=== PATIENT | male | born 1955 | race Caucasian/White ===

== ENCOUNTER → 2020-07-07 | Outpatient (CLI) | payer MEDICARE, OTHER ==
--- NOTE | 2020-07-07 14:11 | CT ---
EXAM DESCRIPTION: CTA Abdomen CLINICAL HISTORY: 64 years Male, ABDOMINAL AORTIC ANEURISM WITHOUT RUPTURE COMPARISON: None. FINDINGS: CTA abdomen Images through the lower chest show clear lungs. Heart is prominent. No pericardial effusion. Images through the upper abdomen show small cyst in the posterior medial right lobe of the liver 8 mm. Another small cyst in the more inferior right lobe measures 7 mm. No calcified stones in the gallbladder. Lobulated appearance of the spleen could be congenital or related to old infarcts or old trauma. Normal adrenal glands. Normal enhancement of the pancreas. Mild bilateral renal scarring with positive cortical enhancement and symmetrical nephrogram. CT angiographic findings show normal caliber of the lower thoracic aorta with mild arteriosclerotic plaque. Widely patent celiac and superior mesenteric artery origins. Calcification at the origins of the bilateral renal arteries left more than right. Endoluminal stent graft is in place with positive enhancement of the lumen. Just below the renal arteries, aortic aneurysm measures 4.2 cm in diameter. More distally at the level of the bifurcation of the graft into 2 iliac limbs, the surrounding chronically thrombosed aneurysm measures 4.5 cm in diameter. Positive enhancement of the right and left common iliac limbs of the stent graft. Positive enhancement of common iliac, proximal external iliac and proximal internal iliac arteries. There is positive enhancement of the inferior mesenteric artery. No evidence of endoleak. Three-D shaded surface display images are evaluated with mediolateral spin display. Coronal and sagittal reformatted images show widely patent celiac axis with positive enhancement of hepatic and splenic arteries. SMA origin is 30% narrowed by plaque (NASCET criteria). Coronal reformatted images show normal enhancement of peripheral branches of the superior mesenteric artery. High-grade narrowing of the origin of the left renal artery approximately 70-80%. Right renal artery origin is narrowed approximately 60% by calcified plaque (NASCET criteria). The lower pelvis is not included on the exam. Extensive arches carotid plaque causes multifocal narrowing of the bilateral internal iliac arteries. External iliac arteries appear widely patent. IMPRESSION: Endoluminal stent graft within infrarenal abdominal aortic aneurysm 4.5 cm in diameter with no evidence of endoleak. This exam was performed according to our departmental dose-optimization program, which includes automated exposure control, adjustment of the mA and/or kV according to patient size and/or use of iterative reconstruction technique. Electronically signed by: Clay Vargas MD 07/07/2020 2:09 PM CDT
== END ==
LOC: CT 10:33
PROVIDERS: ATTEND Family Medicine
DX: I71.4 Abdominal aortic aneurysm, without rupture (principal); Z95.828 Presence of other vascular implants and grafts

== ENCOUNTER → 2020-07-23 | Outpatient (CLI) | payer MEDICARE, OTHER ==
--- NOTE | 2020-07-23 17:16 | RAD ---
EXAM DESCRIPTION: Hand,Left 3 Views (accession [id number]), Hand,Right 3 Views (accession [id number]) CLINICAL HISTORY: PAIN IN LEFT HAND COMPARISON: None Available. TECHNIQUE: AP, LATERAL, AND OBLIQUE FINDINGS: Left hand 3 x-ray views. No fracture. No dislocation. Normal bony mineralization. Cystic changes are seen in the scaphoid. Severe degenerative narrowing of the scapholunate trapezial and scaphoid flow trapezoid joints with narrowing and marginal sclerosis. Cystic change may be intraosseous ganglion within the scaphoid. Lateral view shows mild dorsal tilt of the lunate with mild anterior and posterior spurring. Right hand 3 x-ray views No fracture. No dislocation. Severe degenerative arthrosis of the scaphoid flow trapezial and scaphoid trapezoid joints with narrowing and sclerosis. Mild degenerative spurring at the interphalangeal joint of the thumb. Normal overall bony mineralization and trabecular pattern. 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 Electronically signed by: Clay Vargas MD 07/23/2020 5:15 PM CDT
--- NOTE | 2020-07-23 17:17 | RAD ---
EXAM DESCRIPTION: Hand,Left 3 Views (accession [id number]), Hand,Right 3 Views (accession [id number]) CLINICAL HISTORY: PAIN IN LEFT HAND COMPARISON: None Available. TECHNIQUE: AP, LATERAL, AND OBLIQUE FINDINGS: Left hand 3 x-ray views. No fracture. No dislocation. Normal bony mineralization. Cystic changes are seen in the scaphoid. Severe degenerative narrowing of the scapholunate trapezial and scaphoid flow trapezoid joints with narrowing and marginal sclerosis. Cystic change may be intraosseous ganglion within the scaphoid. Lateral view shows mild dorsal tilt of the lunate with mild anterior and posterior spurring. Right hand 3 x-ray views No fracture. No dislocation. Severe degenerative arthrosis of the scaphoid flow trapezial and scaphoid trapezoid joints with narrowing and sclerosis. Mild degenerative spurring at the interphalangeal joint of the thumb. Normal overall bony mineralization and trabecular pattern. 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 Electronically signed by: Clay Vargas MD 07/23/2020 5:15 PM CDT
== END ==
LOC: RAD 09:01
PROVIDERS: ATTEND Orthopaedic Surgery
DX: M19.041 Primary osteoarthritis, right hand (principal); M19.042 Primary osteoarthritis, left hand

== ENCOUNTER → 2020-08-13 | Outpatient (CLI) | payer MEDICARE, OTHER | LOC: RESP 10:03 | PROVIDERS: ATTEND Internal Medicine Cardiovascular Disease | DX: D73.5 Infarction of spleen (principal) ==

== ENCOUNTER → 2020-10-11 | Outpatient (CLI) | payer MEDICARE, OTHER | LOC: LAB.O 08:45 | PROVIDERS: ATTEND Orthopaedic Surgery | DX: Z01.818 Encounter for other preprocedural examination (principal) ==

== ENCOUNTER 2020-10-26 05:38 | Day surgery (SDC) | payer MEDICARE, OTHER ==
[2020-10-26] MEDS ORDERED: LIDOCAINE 1% 10 ML VIAL INJ ONE ×2 (05:39→07:36)
[2020-10-26] MEDS ORDERED: PROPOFOL 200 MG/20 ML VIAL IV ONE (05:39)
[2020-10-26] MEDS ORDERED: SODIUM CHL 0.9% 100ML MINI-BAG 100 ML IVPB ONE (06:26)
[2020-10-26] MEDS ORDERED: ceFAZolin SODIUM 1 GM VIAL ONE ×2 (06:27→07:36)
[2020-10-26] MEDS ORDERED: LACTATED RINGERS 1,000 ML ONE (06:27)
[2020-10-26] MEDS ORDERED: BUPIVACAINE 0.25% INJ 30 ML VIAL INJ ONE (07:36)
[2020-10-26] MEDS ORDERED: LACTATED RINGERS 1,000 ML IVS ONE (09:25)
[2020-10-26] MEDS ORDERED: CLINDAMYCIN IV 900MG 50 ML IVPB ONE (09:50)
[2020-10-26] MEDS: VANCOMYCIN HCL INJ 1,000 MG VIAL IVPB ONE ×2 (10:21→10:35)
[2020-10-26 11:16] VITALS: BP 136/86; TEMP 97.6; O2SAT 96
--- NOTE | 2020-10-27 09:10 | OP ---
DATE OF PROCEDURE: 10/26/20 PREOPERATIVE DIAGNOSIS: 1. Right carpal tunnel syndrome. POSTOPERATIVE DIAGNOSIS: 1. Right carpal tunnel syndrome. PROCEDURE: 1. Right carpal tunnel release. SURGEON: Zeus Granados MD. FISH PROTECTOR: Sherman Reeves CST, SA-C. ANESTHESIA: Local with sedation. COMPLICATIONS: None. FINDINGS: 1. Thickening of the transverse carpal ligament. 2. Narrowing of the median nerve across the carpal tunnel. INDICATION: Mr. Read has a history of bilateral carpal tunnel syndrome. Unfortunately, he has been unable to get relief with any conservative measures. Because of that, he has requested operative intervention. After discussing the risks, benefits and alternatives to that, the patient has given informed consent for carpal tunnel release. PROCEDURE: The patient was brought to the Operating Room and placed in the supine position. Sedation was administered and local anesthetic was injected into the operative area under sterile conditions. After the injection of anesthetic, the arm was sterilely prepped and draped. A longitudinal incision was made directly overlying the transverse carpal ligament and blunt dissection was carried down to the ligament. The transverse carpal ligament was sharply transected along its length and a [place] elevator was used to ensure complete release of the ligament. Once release had been confirmed, the wound was thoroughly irrigated and the wound was closed with Nylon suture. A sterile dressing was placed and the patient was taken to the Day Surgery Unit. POSTOPERATIVE PLAN: The patient will be doing range of motion of the digits and will followup with us in about two days. #[id number] [facility]TDD
== END 2020-10-26 11:15 | disposition home or self-care (01) ==
LOC: AMB 05:38
PROVIDERS: ATTEND Orthopaedic Surgery
DX: G56.01 Carpal tunnel syndrome, right upper limb (principal); I10 Essential (primary) hypertension; F17.290 Nicotine dependence, other tobacco product, uncomplicated; Z88.0 Allergy status to penicillin; Z79.899 Other long term (current) drug therapy
CPT/HCPCS: 01810; 64721; 80307; J0690; J3370; J3490; J7050; J7120

== ENCOUNTER → 2020-11-04 | Outpatient (CLI) | payer MEDICARE, OTHER | LOC: LAB.O 08:33 | PROVIDERS: ATTEND Orthopaedic Surgery | DX: Z01.818 Encounter for other preprocedural examination (principal) ==

== ENCOUNTER 2020-12-07 05:32 | Day surgery (SDC) | payer MEDICARE, OTHER ==
[2020-12-07] MEDS ORDERED: PROPOFOL 200 MG/20 ML VIAL IV ONE (05:33)
[2020-12-07] MEDS ORDERED: LIDOCAINE 1% 10 ML VIAL INJ ONE ×2 (05:33→09:12)
[2020-12-07] MEDS ORDERED: LACTATED RINGERS 1,000 ML ONE (06:42)
[2020-12-07] MEDS ORDERED: CLINDAMYCIN IV 900MG 50 ML IVPB ONE (06:56)
[2020-12-07] MEDS ORDERED: BUPIVACAINE 0.25% INJ 30 ML VIAL INJ ONE (09:12)
[2020-12-07] MEDS ORDERED: VANCOMYCIN HCL INJ 1,000 MG VIAL IVPB ONE (09:12)
[2020-12-07] MEDS ORDERED: ceFAZolin SODIUM 1 GM VIAL ONE (09:12)
[2020-12-07] MEDS: LACTATED RINGERS 1,000 ML IVS ONE (10:27)
[2020-12-07] MEDS: BUPIVACAINE 0.25% INJ 30 ML VIAL INJ ONE (10:40)
[2020-12-07] MEDS: VANCOMYCIN HCL INJ 1,000 MG VIAL IVPB ONE (10:40)
[2020-12-07] MEDS: LIDOCAINE 1% 10 ML VIAL INJ ONE (10:40)
[2020-12-07 12:15] VITALS: BP 127/86; TEMP 97.7; O2SAT 98
--- NOTE | 2020-12-09 08:59 | OP ---
DATE OF PROCEDURE: 12/07/20 PREOPERATIVE DIAGNOSIS: 1. Left carpal tunnel syndrome. POSTOPERATIVE DIAGNOSIS: 1. Left carpal tunnel syndrome. PROCEDURE: 1. Left carpal tunnel release. SURGEON: Zeus Granados MD. MEDICAL ASSISTANT SUPERVISOR: Sherman Reeves CST, SA-C. ANESTHESIA: Local with sedation. COMPLICATIONS: None. FINDINGS: Compression of the median nerve across the carpal tunnel. INDICATION: Mr. Read has a history of numbness in both hands. He has undergone release on the contralateral side. Because of his ongoing symptoms, he requested operative intervention. After discussing the risks, benefits and alternatives to operative intervention, the patient has given informed consent for carpal tunnel release. PROCEDURE: The patient was brought to the Operating Room and placed in the supine position. Sedation was administered and local anesthetic was injected into the operative area under sterile conditions. After the injection of anesthetic, the arm was sterilely prepped and draped. A longitudinal incision was made directly overlying the transverse carpal ligament and blunt dissection was carried down to the ligament. The transverse carpal ligament was sharply transected along its length and a [place] elevator was used to ensure complete release of the ligament. Once release had been confirmed, the wound was thoroughly irrigated and the wound was closed with Nylon suture. A sterile dressing was placed and the patient was taken to the Day Surgery Unit. POSTOPERATIVE PLAN: The patient has been encouraged to do range of motion of the digits and will followup with us in two days. #[id number] [facility]
== END 2020-12-07 12:05 | disposition home or self-care (01) ==
LOC: AMB 05:32
PROVIDERS: ATTEND Orthopaedic Surgery
DX: G56.02 Carpal tunnel syndrome, left upper limb (principal); I10 Essential (primary) hypertension; Z88.0 Allergy status to penicillin; Z79.899 Other long term (current) drug therapy
CPT/HCPCS: 01810; 64721; J3370; J3490; J7120